=== PATIENT | male | born 1990 | race Caucasian/White ===

== ENCOUNTER 2018-01-04 15:40 | Emergency (ER) | payer MEDICAID ==
[~2018-01-04] VITALS: Ht 172.7 cm; Wt 87.7 kg
[2018-01-04 15:41] VITALS: BP 132/74
[2018-01-04] MEDS ORDERED: IBUP-1984 PO (16:52)
== END 2018-01-04 17:31 | disposition home or self-care (01) ==
LOC: ER 15:41
DX: S52.121A Displaced fracture of head of right radius, initial encounter for closed fracture (principal); V19.9XXA Pedal cyclist (driver) (passenger) injured in unspecified traffic accident, initial encounter; Y93.89 Activity, other specified; Y92.89 Other specified places as the place of occurrence of the external cause; Y99.8 Other external cause status
CPT/HCPCS: 29105; 73080; 73090; 99284; A4565; A6449